=== PATIENT | male | born 1955 | race Caucasian/White ===

== ENCOUNTER → 2016-10-31 | Outpatient (CLI) | payer OTHER ==
--- NOTE | 2016-11-01 08:03 | CT ---
EXAMINATION TYPE: CT wrist LT wo con DATE OF EXAM: 10/31/2016 7:39 PM COMPARISON: NONE HISTORY: Left wrist injury [address] DLP: 194.00 mGycm Automated exposure control for dose reduction was used. TECHNIQUE: Axial images 3 mm thick sections. Reconstructed images in the coronal and sagittal planes. Three-D reconstructed images through the wrist are performed by the technologist on a separate comput er and presented. FINDINGS: Multiple cysts are identified within the osseous structures including a subchondral cyst in the dista l radius, a cyst within the proximal scaphoid, a couple of tiny cysts are within the proximal capitat e. A bone island may be within the medial aspect of the lunate. Moderately advanced degenerative changes with spurring and loss of joint space are at the trapezium f irst metacarpal. There is prominence of the scapholunate space suggestive for a scapholunate disassociation. Some calcification is adjacent to the lunate slightly more superior to the expected location of the t riangular fibrocartilage. No source for avulsion is identified. These appear to be smoothly marginate d and may be intra-articular calcifications. No suspicious cortical disruption is evident suggest an acute fracture. IMPRESSION: 1. NO ACUTE FRACTURE. 2. 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 3. INTRA-ARTICULAR OSSEOUS BODIES ADJACENT TO THE MEDIAL ASPECT OF THE LUNATE. 4. SUBCHONDRAL CYSTS AND BONE CYSTS DISCUSSED ABOVE. 5. DEGENERATIVE JOINT CHANGES MOST NOTABLY FIRST CARPOMETACARPAL JUNCTION.
== END | disposition home or self-care (01) ==
LOC: RADCTMAIN 18:27
PROVIDERS: ATTEND Orthopaedic Surgery
DX: M25.532 Pain in left wrist (principal); S52.592A Other fractures of lower end of left radius, initial encounter for closed fracture; M18.12 Unilateral primary osteoarthritis of first carpometacarpal joint, left hand; M85.632 Other cyst of bone, left forearm